=== PATIENT | female | born 1960 | race Caucasian/White ===

== ENCOUNTER 2018-07-27 08:26 | Emergency (ER) | payer BC ==
[~2018-07-27] VITALS: Ht 160 cm; Wt 52.2 kg
== END 2018-07-27 09:03 | disposition home or self-care (01) ==
LOC: FSED 08:26
DX: S00.03XA Contusion of scalp, initial encounter (principal); W18.39XA Other fall on same level, initial encounter; Y92.008 Other place in unspecified non-institutional (private) residence as the place of occurrence of the external cause
CPT/HCPCS: 99283

== ENCOUNTER 2021-11-20 14:30 | Emergency (ER) | payer BC, OTHER ==
[~2021-11-20] VITALS: Ht 165.1 cm; Wt 59.0 kg
[2021-11-20] MEDS ORDERED: IBUPROFEN 600 MG TAB PO STA (14:47)
[2021-11-20] MEDS ORDERED: IBUPROFEN 600 MG TAB ONE (15:26)
[2021-11-20] MEDS ORDERED: ONDANSETRON ODT4 MG PO (16:01)
== END 2021-11-20 16:04 | disposition home or self-care (01) ==
LOC: FSED 14:49
DX: S52.501A Unspecified fracture of the lower end of right radius, initial encounter for closed fracture (principal); W01.0XXA Fall on same level from slipping, tripping and stumbling without subsequent striking against object, initial encounter; Y93.01 Activity, walking, marching and hiking; Y92.89 Other specified places as the place of occurrence of the external cause
CPT/HCPCS: 99283